=== PATIENT | female | born 1955 | race Hispanic/Latino ===

== ENCOUNTER 2019-01-07 16:43 | Emergency (ER) | payer MEDICARE ==
[2019-01-07 17:42] VITALS: BP 114/66
--- NOTE | 2019-01-07 17:44 | Emergency Department Report ---
Blank Doc - Documentation Documentation: 63 yo f presents with pmh of degenerating dsc, spinal injury taking tramadol sge states shes she moved here from [place] and states she isnt feeling well and needs a refill of her medication been taking tramadol since 2006 Needs referral [facility] pain control in ED reevaluate
[2019-01-07] MEDS ORDERED: TORADOL IM ONE (19:53)
--- NOTE | 2019-01-07 20:37 | Emergency Department Report ---
ED Back Pain/Injury HPI - General Chief Complaint: Back Pain/Injury Stated Complaint: RT HIP/BACK PAIN Time Seen by Provider: 01/07/19 17:40 Source: patient Limitations: No Limitations - History of Present Illness Initial Comments: This is a 63-year-old male nontoxic, well nourished in appearance, no acute signs of distress presents to the ED with c/o of acute on chronic lower back pain. Patient stated she usually takes Tramadol for pain and has a pain specialist in [place] but has relocated itself 2 months ago and has not yet followed up with a pain specialist or primary care doctor. Patient states has history of sciatica nerve pain which is similar symptoms as today. Patient states that pain radiates through to his right lower extremity. Patient denies any trauma. Denies any bladder or bowel instability. Patient denies any urinary symptoms. Denies any fever, chills, nausea, vomiting, headache, stiff neck, chest pain or shortness of breath. Patient denies any numbness or tingling. Patient stated allergies to cortisone. Past medical history includes lumbar bulging disc. MD Complaint: back pain -: days(s) Similar Symptoms Previously: Yes Radiation: right leg Severity: mild Severity scale (0 -10): 8 Quality: aching Consistency: intermittent Improves With: immobilization, sitting upright Worsens With: movement, walking Context: while lifting, turning/twisting Associated Symptoms: denies other symptoms. denies: confusion, weakness, chest pain, numbness, difficulty walking, cough, difficulty urinating, diaphoresis, incontinence, fever/chills, constipation, headaches, abdominal pain, loss of appetite, malaise, nausea/vomiting, rash, seizure, shortness of breath, syncope - Related Data Previous Rx's Medication Instructions Recorded Last Taken Type traMADol [Ultram 50 MG tab] 50 mg PO Q6HR PRN #12 tablet 01/07/19 Unknown Rx Allergies Allergy/AdvReac Type Severity Reaction Status Date / Time cortisone AdvReac Unknown Verified 01/07/19 17:02 ED Review of Systems ROS: Stated complaint: RT HIP/BACK PAIN Other details as noted in HPI Constitutional: denies: chills, fever Eyes: denies: eye pain, eye discharge, vision change ENT: denies: ear pain, throat pain Respiratory: denies: cough, shortness of breath, wheezing Cardiovascular: denies: chest pain, palpitations Endocrine: no symptoms reported Gastrointestinal: denies: abdominal pain, nausea, diarrhea Genitourinary: denies: urgency, dysuria, discharge Musculoskeletal: back pain. denies: joint swelling, arthralgia Skin: denies: rash, lesions Neurological: denies: headache, weakness, paresthesias Psychiatric: denies: anxiety, depression Hematological/Lymphatic: denies: easy bleeding, easy bruising ED Past Medical Hx - Past Medical History Previous Medical History?: Yes Additional medical history: HEAD TRAUMA/ BULGING DISC IN BACK - Social History Smoking Status: Current Every Day Smoker Substance Use Type: None - Medications Home Medications: Home Medications Medication Instructions Recorded Confirmed Last Taken Type traMADol [Ultram 50 MG tab] 50 mg PO Q6HR PRN #12 tablet 01/07/19 Unknown Rx ED Physical Exam - General Limitations: No Limitations General appearance: alert, in no apparent distress - Head Head exam: Present: atraumatic, normocephalic - Neck Neck exam: Present: normal inspection, full ROM - Extremities Exam Extremities exam: Present: normal inspection, full ROM, normal capillary refill. Absent: tenderness - Back Exam Back exam: Present: normal inspection, full ROM, paraspinal tenderness (lumbar paraspinal). Absent: tenderness, CVA tenderness (R), CVA tenderness (L), muscle spasm, vertebral tenderness, rash noted - Expanded Back Exam Expanded Back exam: Absent: saddle anesthesia Back exam: Negative Straight Leg Raising: Left, Right - Neurological Exam Neurological exam: Present: alert, oriented X3, normal gait - Psychiatric Psychiatric exam: Present: normal affect, normal mood - Skin Skin exam: Present: warm, dry, intact, normal color. Absent: rash ED Course Vital Signs 01/07/19 17:40 Temperature 98.2 F Pulse Rate 103 H Respiratory 20 Rate Blood Pressure 114/66 O2 Sat by Pulse 95 Oximetry - Reevaluation(s) Reevaluation #1: 01/07/19 20:35 Patient is speaking in full sentences with no signs of distress noted. ED Medical Decision Making - Medical Decision Making This is a 63-year-old female that presents with low back strain. Patient is stable was examined by me. There is no spinal tenderness. There is no cauda equina syndrome during examination. No bladder or bowel instability. Patient received Toradol 60 mg IM in the ED which preceded his symptoms has resolved and subsided. Patient is discharged with few days of tramadol until patient gets a PCP follow-up. Patient was instructed not to operate any machinery while taking Tramadol as they cause her drowsiness. Patient was referred to Follow-up with a primary care doctor in 3-5 days or if symptoms worsen and continue return to emergency room as soon as possible. At time of discharge, the patient does not seem toxic or ill in appearance. No acute signs of distress noted. Patient agrees to discharge treatment plan of care. No further questions noted by the patient. This chart is dictated with using [employer] Critical care attestation.: If time is entered above; I have spent that time in minutes in the direct care of this critically ill patient, excluding procedure time. ED Disposition Clinical Impression: Chronic back pain Qualifiers: Back pain location: low back pain Back pain laterality: bilateral Sciatica presence: with sciatica Sciatica laterality: sciatica of right side Qualified Code(s): M54.41 - Lumbago with sciatica, right side; G89.29 - Other chronic pain Low back strain Qualifiers: Encounter type: initial encounter Qualified Code(s): S39.012A - Strain of muscle, fascia and tendon of lower back, initial encounter Disposition: DC-01 TO HOME OR SELFCARE Is pt being admited?: No Does the pt Need Aspirin: No Condition: Stable Instructions: Low Back Strain (ED), Tramadol (By mouth) Additional Instructions: Follow-up with a primary care doctor in 3-5 days or if symptoms worsen and continue return to emergency room as soon as possible. Do not operate any machinery while taking Tramadol as this may cause drowsiness. Prescriptions: traMADol [Ultram 50 MG tab] 50 mg PO Q6HR PRN #12 tablet PRN Reason: Pain Referrals: PRIMARY CARE, [Referring] - 3-5 Days YESSENIA ALVARENGA MD [Staff Physician] - 3-5 Days [facility] [Outside] - 3-5 Days [facility] [Outside] - 3-5 Days
== END 2019-01-07 20:43 | disposition home or self-care (01) ==
LOC: ED 16:43
DX: S39.012A Strain of muscle, fascia and tendon of lower back, initial encounter (principal); M54.41 Lumbago with sciatica, right side; G89.29 Other chronic pain; X58.XXXA Exposure to other specified factors, initial encounter; Y93.89 Activity, other specified; Y92.89 Other specified places as the place of occurrence of the external cause; Y99.8 Other external cause status
CPT/HCPCS: 96372; 99282; J1885

== ENCOUNTER 2019-06-11 10:21 | Outpatient (CLI) | payer OTHER ==
--- NOTE | 2019-06-11 11:37 | XRay Report ---
CERVICAL SPINE, 3 VIEWS INDICATION: SPINAL INJURY,PAIN/DISABILITY. COMPARISON: None. IMPRESSION: Normal alignment. Mild degenerative disc space narrowing and marginal spurring is ident ified at C5-6 and C6-7. The remaining levels are within normal limits. The posterior elements are in appropriate relationship. No acute osseous or soft tissue abnormality. Osteopenia is suspected. LUMBOSACRAL SPINE, 3 VIEWS INDICATION: SPINAL INJURY,PAIN/DISABILITY. COMPARISON: None. IMPRESSION: Normal alignment. Mild disc space narrowing is identified at L3-4. There is moderate di ffuse facet arthropathy which is most pronounced at L3-4, L4-5 and L5-S1. No acute osseous or soft t issue abnormality. Osteopenia is suspected. RIGHT HIP, 2 VIEWS INDICATION: SPINAL INJURY,PAIN/DISABILITY. COMPARISON: None. IMPRESSION: No acute osseous or soft tissue abnormality. Mild osteoarthritic changes are identifi ed at the right hip joint. No evidence for fracture, bone lesion or osteonecrosis. Osteopenia is susp ected. Signer Name: Leonidas Rubi Jr, MD Signed: 06/11/2019 11:32 AM Workstation Name: [id number]
== END 2019-06-11 10:22 | disposition home or self-care (01) ==
LOC: XRAY 10:21
PROVIDERS: ATTEND Internal Medicine
DX: Z02.71 Encounter for disability determination (principal); M48.02 Spinal stenosis, cervical region; M48.061 Spinal stenosis, lumbar region without neurogenic claudication; M16.11 Unilateral primary osteoarthritis, right hip
CPT/HCPCS: 72040; 72100

== ENCOUNTER 2019-10-16 01:52 | Emergency (ER) | payer MEDICARE ==
[2019-10-16] MEDS ORDERED: diphenhydrAMINE 25 MG CAP PO ONE (05:21)
[2019-10-16] MEDS ORDERED: METOCLOPRAMIDE 10 MG TAB PO ONE (05:21)
[2019-10-16] MEDS ORDERED: ACETAMINOPHEN 500 MG TAB PO ONE (05:21)
--- NOTE | 2019-10-16 05:23 | Emergency Department Report ---
ED Headache HPI - General Chief Complaint: Headache Stated Complaint: HEADACHE Time Seen by Provider: 10/16/19 05:20 - History of Present Illness Initial Comments: Ms. Schmitz is s 64 y/o w/f who presents for headache frontal / acute on chronic for past yr. states she is out or tramadal 50 mg po that she takes for headache and pain. Medication rx by pcp Dr. Lubin. pt cannot recall last pcp visit however, states she has been "going to different ers for pain management for past few months." PT denies fever no chills no photophobia, no n/v no neck or back pain at this time. symptoms are exacerbated by activity , symptoms are relieved by nothing. Timing/Duration: other (1 year ) Quality: moderate Head Injury Location: frontal Recent Head Trauma: frequent headaches, chronic headaches Modifying Factors: improves with: movement, other (activity ) Associated Symptoms: denies: fever/chills, nausea/vomiting, nasal congestion, nasal drainage, sinus infection, stiff neck Allergies/Adverse Reactions: Allergies cortisone Adverse Reaction (Verified 01/07/19 17:02) Unknown Home Medications: Ambulatory Orders traMADoL [Ultram 50 MG tab] 50 mg PO Q6HR PRN #12 tablet 01/07/19 traMADoL [Ultram] 50 mg PO Q6HR PRN #12 tablet 10/16/19 ED Review of Systems ROS: Stated complaint: HEADACHE Other details as noted in HPI Constitutional: denies: chills, fever Eyes: denies: eye pain, eye discharge, vision change ENT: denies: ear pain, throat pain, congestion Respiratory: denies: cough, shortness of breath, wheezing Cardiovascular: denies: chest pain, palpitations Endocrine: no symptoms reported Gastrointestinal: denies: abdominal pain, nausea, vomiting, diarrhea Genitourinary: denies: urgency, dysuria, discharge Musculoskeletal: denies: back pain, joint swelling, arthralgia Skin: denies: rash, lesions Neurological: headache. denies: weakness, numbness, paresthesias, confusion, vertigo Psychiatric: denies: anxiety, depression Hematological/Lymphatic: denies: easy bleeding, easy bruising ED Past Medical Hx - Past Medical History Previous Medical History?: Yes Hx Headaches / Migraines: Yes Additional medical history: HEAD TRAUMA/ BULGING DISC IN BACK - Surgical History Past Surgical History?: No - Social History Smoking Status: Current Every Day Smoker Substance Use Type: None - Medications Home Medications: Home Medications Medication Instructions Recorded Confirmed Last Taken Type traMADoL [Ultram 50 MG tab] 50 mg PO Q6HR PRN #12 tablet 01/07/19 Unknown Rx traMADoL [Ultram] 50 mg PO Q6HR PRN #12 tablet 10/16/19 Unknown Rx ED Physical Exam - General Limitations: No Limitations General appearance: alert, in no apparent distress - Head Head exam: Present: atraumatic, normocephalic - Eye Eye exam: Present: normal appearance, PERRL, EOMI. Absent: conjunctival injection, nystagmus Pupils: Present: normal accommodation - ENT ENT exam: Present: normal orophraynx, mucous membranes moist, TM's normal bilaterally, normal external ear exam - Neck Neck exam: Present: normal inspection, full ROM. Absent: tenderness, meningismus, lymphadenopathy, thyromegaly - Respiratory Respiratory exam: Present: normal lung sounds bilaterally. Absent: respiratory distress, wheezes, stridor, chest wall tenderness - Cardiovascular Cardiovascular Exam: Present: regular rate, normal rhythm, normal heart sounds. Absent: systolic murmur, diastolic murmur, rubs, gallop - GI/Abdominal GI/Abdominal exam: Present: soft, normal bowel sounds - Rectal Rectal exam: Present: deferred - Extremities Exam Extremities exam: Present: normal inspection, full ROM, normal capillary refill. Absent: tenderness - Back Exam Back exam: Present: normal inspection, full ROM. Absent: tenderness, CVA tenderness (R), CVA tenderness (L), vertebral tenderness, rash noted - Neurological Exam Neurological exam: Present: alert, oriented X3, CN II-XII intact, normal gait. Absent: motor sensory deficit, reflexes normal - Expanded Neurological Exam Expanded Patient oriented to: Present: person, place, time Speech: Present: fluid speech Cranial nerves: EOM's Intact: Normal, Gag Reflex: Normal, Tongue Deviation: Normal, Nystagmus: Normal Motor strength exam: RUE: 5, LUE: 5, RLE: 5, LLE: 5 Best Eye Response (Pat): (4) open spontaneously Best Motor Response ([place]): (6) obeys commands Best Verbal Response ([place]): (5) oriented [place] Total: 15 - Psychiatric Psychiatric exam: Present: normal affect, normal mood - Skin Skin exam: Present: warm, dry, intact, normal color. Absent: rash ED Course Vital Signs 10/16/19 02:11 Temperature 97.6 F Pulse Rate 72 Respiratory 20 Rate Blood Pressure 154/77 O2 Sat by Pulse 94 Oximetry ED Medical Decision Making - Medical Decision Making This is an acute on chronic headache, pt states usually relived by tramadol po prn. [place] [facility] notes last rx : 01/07/2019 DR Lubin who pt states is pcp. Physical exam is normal , no neuro deficits no fever no chills no neck pain or stiffness, no photophobia or n/v, pt tx'd ultram po in ed, plan will dc'd with rx for same. Pt will follow up with pcp in 2-3 days, pt verbalized agreement and understanding of discharge plan. Pt is currently a/o x 3, ambulatory with steady gait at this time. Critical care attestation.: If time is entered above; I have spent that time in minutes in the direct care of this critically ill patient, excluding procedure time. ED Disposition Clinical Impression: Headache Qualifiers: Headache type: unspecified Headache chronicity pattern: acute headache Intractability: not intractable Qualified Code(s): R51 - Headache Disposition: DC-01 TO HOME OR SELFCARE Is pt being admited?: No Does the pt Need Aspirin: No Condition: Stable Instructions: Acute Headache (ED) Prescriptions: traMADoL [Ultram] 50 mg PO Q6HR PRN #12 tablet PRN Reason: Pain Referrals: BRODIE THOMPSON MD [Staff Physician] - 3-5 Days [facility] [Outside] - 3-5 Days Forms: Work/School Release Form(ED) Time of Disposition: 05:49
[2019-10-16] MEDS ORDERED: traMADol 50 MG TAB PO ONE (05:46)
[2019-10-16 06:29] VITALS: BP 123/60
== END 2019-10-16 06:54 | disposition home or self-care (01) ==
LOC: ED 01:52
DX: G43.909 Migraine, unspecified, not intractable, without status migrainosus (principal); F17.200 Nicotine dependence, unspecified, uncomplicated; Z88.8 Allergy status to other drugs, medicaments and biological substances
CPT/HCPCS: 99283

== ENCOUNTER 2019-10-16 14:24 | Emergency (ER) | payer MEDICARE ==
[2019-10-16 14:37] VITALS: BP 120/53
--- NOTE | 2019-10-16 17:00 | Emergency Department Report ---
- General Chief Complaint: Laceration/Recheck/Suture Stated Complaint: VAGINAL PAIN Time Seen by Provider: 10/16/19 16:41 Source: patient Mode of arrival: Ambulatory Limitations: No Limitations - History of Present Illness Initial Comments: 64-year-old female presents to the emergency room complaining of irritation to her vaginal area. Patient states that one month ago she fell she had a chemical burn when she used to bathroom and the wound ahead splashed back up and her private area. Patient states soon after she had a scab which has now fallen off patient states. She denies any vaginal discharge she denies douching using any creams or lotions down in the vaginal area. Onset/Timin -: month(s) Location: genitals Place: home Context: accidental Associated Symptoms: none - Related Data Previous Rx's Medication Instructions Recorded Last Taken Type traMADoL [Ultram 50 MG tab] 50 mg PO Q6HR PRN #12 tablet 01/07/19 Unknown Rx Sennosides/Docusate Sodium [Senna 1 each PO QDAY PRN #20 capsule 10/16/19 Unknown Rx Plus 8.6-50 mg Softgel] traMADoL [Ultram] 50 mg PO Q6HR PRN #12 tablet 10/16/19 Unknown Rx Allergies Allergy/AdvReac Type Severity Reaction Status Date / Time cortisone AdvReac Unknown Verified 01/07/19 17:02 ED Review of Systems ROS: Stated complaint: VAGINAL PAIN Other details as noted in HPI ED Past Medical Hx - Past Medical History Hx Headaches / Migraines: Yes Additional medical history: HEAD TRAUMA/ BULGING DISC IN BACK - Social History Smoking Status: Current Every Day Smoker Substance Use Type: None - Medications Home Medications: Home Medications Medication Instructions Recorded Confirmed Last Taken Type traMADoL [Ultram 50 MG tab] 50 mg PO Q6HR PRN #12 tablet 01/07/19 Unknown Rx Sennosides/Docusate Sodium [Senna 1 each PO QDAY PRN #20 capsule 10/16/19 Unknown Rx Plus 8.6-50 mg Softgel] traMADoL [Ultram] 50 mg PO Q6HR PRN #12 tablet 10/16/19 Unknown Rx ED Physical Exam - General Limitations: No Limitations General appearance: alert, in no apparent distress - Head Head exam: Present: atraumatic, normocephalic - Eye Eye exam: Present: normal appearance - ENT ENT exam: Present: mucous membranes moist - External exam: Present: normal external exam. Absent: erythema, swelling, lesions, lacerations, ecchymosis, bleeding - Extremities Exam Extremities exam: Present: normal inspection, full ROM - Back Exam Back exam: Present: normal inspection, full ROM - Neurological Exam Neurological exam: Present: alert, oriented X3 - Psychiatric Psychiatric exam: Present: flat affect - Skin Skin exam: Present: warm, dry, intact, normal color. Absent: rash ED Course Vital Signs 10/16/19 14:35 Temperature 98.6 F Pulse Rate 73 Respiratory 19 Rate Blood Pressure 120/53 O2 Sat by Pulse 94 Oximetry ED Medical Decision Making - Medical Decision Making 64-year-old female presents to the emergency room complaining of irrit ation to her vaginal area. Patient states that one month ago she fell she had a chemical burn when she used to bathroom and the wound ahead splashed back up and her private area. Patient states soon after she had a scab which has now fallen off patient states. She denies any vaginal discharge she denies douching using any creams or lotions down in the vaginal area. No lesions scab open wounds to the vaginal orifice. Nor there is any open wounds scab lesion to the rectal orifice. Patient be discharged home reassurance that there is no wound. Patient will be was discharged home with a prescription for laxative. Critical care attestation.: If time is entered above; I have spent that time in minutes in the direct care of this critically ill patient, excluding procedure time. ED Disposition Clinical Impression: Vaginal pain, Constipation Disposition: - TO HOME OR SELFCARE Is pt being admited?: No Does the pt Need Aspirin: No Condition: Stable Prescriptions: Sennosides/Docusate Sodium [Senna Plus 8.6-50 mg Softgel] 1 each PO QDAY PRN #20 capsule PRN Reason: Constipation Referrals: PRIMARY CARE,MD [Primary Care Provider] - 3-5 Days [facility][Note 3] [Outside] - 3-5 Days [facility] [Outside] - 3-5 Days
== END 2019-10-16 17:13 | disposition home or self-care (01) ==
LOC: ED 14:24
DX: R10.2 Pelvic and perineal pain (principal); K59.00 Constipation, unspecified; G43.909 Migraine, unspecified, not intractable, without status migrainosus; F17.200 Nicotine dependence, unspecified, uncomplicated; Z79.899 Other long term (current) drug therapy; Z88.8 Allergy status to other drugs, medicaments and biological substances
CPT/HCPCS: 99282

== ENCOUNTER 2019-10-19 15:20 | Emergency (ER) | payer MEDICARE ==
[2019-10-19 15:30] VITALS: BP 126/73
--- NOTE | 2019-10-19 15:34 | Emergency Department Report ---
Stated Complaint: HIP/RT SHOULDER/BACK PAIN Time Seen by Provider: 10/19/19 15:25 - HPI History of Present Illness: This is a 64 y.o. F. that presents to the ER with medication refills. Patient states she have chronic bilateral knee pain, back pain, and right shoulder pain. Patient states she is having a hard time getting a primary care doctor for a referral to pain management. Patient states she received a refill a few days ago for 3 days which she ran out and can't get an appointment for further refills. She denies recent injury, swelling, numbness or tingling, weakness, - Exam Vital Signs: Vital Signs 10/19/19 15:26 Temperature 98.5 F Pulse Rate 89 Respiratory 18 Rate Blood Pressure 126/73 O2 Sat by Pulse 95 Oximetry MSE screening note: Focused history and physical exam performed. Due to findings the following was ordered: ED Medical Decision Making - Medical Decision Making This is a 64-year-old female that presents with chronic pain requesting refill of tramadol. Patient is stable was examined by me. There is no spinal tenderness. There is no cauda equina syndrome during examination. No bladder or bowel instability. Denies recent injury. This a non-emergent complaint. Patient given referral to pain management and PCP for follow up. Follow-up with a primary care doctor in 3-5 days or if symptoms worsen and continue return to emergency room as soon as possible. At time of discharge, the patient does not seem toxic or ill in appearance. No acute signs of distress noted. Patient agrees to discharge treatment plan of care. No further questions noted by the patient. ED Disposition for MSE Clinical Impression: Feared complaint without diagnosis Disposition: DC-01 TO HOME OR SELFCARE Is pt being admited?: No Condition: Stable Instructions: Chronic Pain (ED) Referrals: [facility] [Provider Group] - 3-5 Days [facility] [Provider Group] - 3-5 Days [facility] [Provider Group] - 3-5 Days [facility] [Outside] - 3-5 Days Time of Disposition: 15:41
== END 2019-10-19 16:09 | disposition home or self-care (01) ==
LOC: ED 15:20
DX: G89.29 Other chronic pain (principal); M25.562 Pain in left knee; M25.561 Pain in right knee; M25.511 Pain in right shoulder; M54.9 Dorsalgia, unspecified; Z71.1 Person with feared health complaint in whom no diagnosis is made